=== PATIENT | male | born 1960 ===

== ENCOUNTER 2021-02-16 07:01 | Day surgery (SDC) | payer OTHER ==
[~2021-02-16 07:01] MED LIST: AMBIEN PO; CLONAZEPAM0.5 MG PO; EFFEXOR XR150 MG PO; FOLIC AC PO; OMEGA 3 1,0001 EACH PO; TOPROL XL25 M1 PO; VITAMIN D3 PO
[2021-02-16] MEDS ORDERED: ULTRAM50 MG PO (16:16)
== END 2021-02-16 22:10 | disposition home or self-care (01) ==
LOC: CIR.AMB 07:01
PROVIDERS: ATTEND Surgery
DX: K64.4 Residual hemorrhoidal skin tags (principal); K64.8 Other hemorrhoids; Z20.822 Contact with and (suspected) exposure to COVID-19